=== PATIENT | female | born 1980 | race Caucasian/White ===

== ENCOUNTER 2023-08-25 05:00 | Day surgery (SDC) | payer OTHER ==
[2023-08-19 09:05] LABS: PH,URINE 5.5 (5.0-8.0); URINE APPEARANCE Clear; URINE BILIRRUBIN Negative (NEGATIVE); URINE BLOOD Negative; URINE COLOR Yellow; URINE GLUCOSE Negative (NEGATIVE); URINE LEUKOCYTE Negative; URINE NITRATE Negative; URINE PROTEIN Negative (NEGATIVE); URINE UROBILINOGEN 0.2 E.U./dl
[2023-08-19 09:06] LABS: HEMATOCRIT 39.1 % (36.0-45.00); HEMOGLOBIN 13.2 g/dL (12.0-15.00); MEAN CELL VOLUME 90.2 fL (80.00-100.00); MEAN CORPUSCULAR HEMOGLOBIN 30.3 pg (27.00-32.0); MEAN CORPUSCULAR HGB CONC 33.6 g/dl (32.0-36.0); PLATELET COUNT 265 K/uL (150-450); RED BLOOD COUNT 4.34 M/uL (4.00-6.00); RED CELL DISTRIBUTION WIDTH 13.5 % (11.5-14.5)
[2023-08-19 09:11] LABS: URINE EPITHELIAL CELLS 6.4 uL (0.0-38.8); URINE WBC 2.7 uL (0.0-23.2)
[2023-08-19 09:35] LABS: INR 0.98; PARTIAL THROMBOPLASTIN TIME 27.5 SECONDS (22.0-34.0); PROTHROMBIN TIME 10.3 SECONDS (9.0-11.5)
[2023-08-19 09:36] LABS: ALBUMIN 3.4 gm/dL (3.4-5.0); BILIRUBIN TOTAL 0.47 mg/dL (0.3-1.2); BILIRUBIN,CONJUGATED 0.1 mg/dL (0.0-0.2); BILIRUBIN,UNCONJUGATED 0.37 mg/dL (0.0-0.6); CALCIUM 9.7 mg/dL (8.5-10.1); CREATININE SERUM 0.84 mg/dL (0.55-1.02); GFR 73.65; GLOBULINA 3.7 G/DL (2.4-3.5); POTASSIUM 3.75 mEq/L (3.5-5.1); TOTAL PROTEIN 7.1 gm/dL (6.4-8.2)
[2023-08-19 09:45] LABS: URINE RBC 1.2 uL (0.0-20.8)
[~2023-08-25 05:00] MED LIST: AVALIDE 300-121 EACH PO
[2023-08-25] MEDS ORDERED: CEFAZOLIN SODIUM 1,000 MG VIAL ONE (06:39)
[2023-08-25] MEDS ORDERED: ENOXAPARIN SODIUM 40 MG/0.4 ML SYRINGE SUBCUTANEO ONE ×2 (06:39→07:00)
[2023-08-25] MEDS ORDERED: CEFAZOLIN SODIUM 1,000 MG VIAL IV ONE (07:00)
[2023-08-25] MEDS ORDERED: SUGAMMADEX SODIUM 200 MG/2 ML VIAL IV ONE ×2 (09:05→09:15)
[2023-08-25] MEDS ORDERED: PERCOCET 5-3251 EACH PO (09:32)
[2023-08-25] MEDS ORDERED: PEPCID AC20 MG PO (09:32)
[2023-08-25] MEDS ORDERED: MIRALAX17 GM PO (09:32)
[2023-08-25] MEDS ORDERED: TYLENOL325 MG PO (09:32)
[2023-08-25] MEDS ORDERED: ONDANSETRON HCL 2 MG/ML VIAL ONE (10:37)
[2023-08-25] MEDS ORDERED: ONDANSETRON HCL 2 MG/ML VIAL IV ONE (10:40)
[2023-08-25] MEDS ORDERED: MORPHINE SULFATE 4 MG/ML VIAL IV ONE (10:45)
== END 2023-08-25 12:30 | disposition home or self-care (01) ==
LOC: CIR.AMB 05:00
PROVIDERS: ATTEND Surgery
DX: K80.10 Calculus of gallbladder with chronic cholecystitis without obstruction (principal); E66.9 Obesity, unspecified; K42.0 Umbilical hernia with obstruction, without gangrene; Z20.822 Contact with and (suspected) exposure to COVID-19; I10 Essential (primary) hypertension